=== PATIENT | male | born 1950 | race Caucasian/White ===

== ENCOUNTER 2016-10-27 17:58 | Emergency (ER) | payer MEDICAID, MEDICARE ==
[~2016-10-27] VITALS: Ht 170.2 cm; Wt 70.5 kg
[2016-10-27] MEDS ORDERED: SODIUM CHLORIDE 0.9% 1,000ML IVBOLUS ONE (19:30)
[2016-10-27] MEDS ORDERED: SODIUM CHLORIDE FLUSH 10ML SYR IVF ONE (19:30)
[2016-10-27 19:58] LABS: BLOOD UREA NITROGEN 27 mg/dL (7-18)
[2016-10-27 20:04] LABS: ASPARTATE AMINO TRANSFERASE 18 U/L (15-37)
[2016-10-27 22:53] VITALS: BP 156/85
== END 2016-10-27 23:01 | disposition home or self-care (01) ==
LOC: ED 22:09
DX: S70.02XA Contusion of left hip, initial encounter (principal); Z59.0 Homelessness; F17.200 Nicotine dependence, unspecified, uncomplicated; W19.XXXA Unspecified fall, initial encounter; Y93.89 Activity, other specified; Y99.8 Other external cause status; Y92.89 Other specified places as the place of occurrence of the external cause
CPT/HCPCS: 36415; 71010; 72190; 73552; 73700; 80053; 80307; 83880; 85025; 99285; J7030

== ENCOUNTER 2016-11-04 16:41 | Emergency (ER) | payer MEDICARE ==
[~2016-11-04] VITALS: Ht 167.6 cm; Wt 65.9 kg
[2016-11-04] MEDS ORDERED: SODIUM CHLORIDE 0.9% 1,000ML IVBOLUS ONE (17:00)
[2016-11-04] MEDS ORDERED: SODIUM CHLORIDE FLUSH 10ML SYR IVF ONE (17:00)
[2016-11-04 17:26] LABS: ASPARTATE AMINO TRANSFERASE 14 U/L (15-37); BLOOD UREA NITROGEN 26 mg/dL (7-18)
[2016-11-04 17:48] LABS: IS PT STATUS REG ER OR PRE ER? YES
[2016-11-04] MEDS ORDERED: FAMOTIDINE 20 MG TABLET PO ONE (18:00)
[2016-11-04 18:40] VITALS: BP 198/109
[2016-11-04] MEDS ORDERED: FAMOTIDINE 20 MG TABLET ONE (18:44)
== END 2016-11-04 19:34 | disposition home or self-care (01) ==
LOC: ED 17:54
DX: K29.20 Alcoholic gastritis without bleeding (principal); E86.0 Dehydration; Z59.0 Homelessness; I10 Essential (primary) hypertension; Z72.9 Problem related to lifestyle, unspecified
CPT/HCPCS: 36415; 80053; 81003; 83690; 84484; 85025; 85610; 85730; 96360; 99284; J7030

== ENCOUNTER 2016-11-08 03:54 | Emergency (ER) | payer MEDICARE ==
[~2016-11-08] VITALS: Ht 167.6 cm; Wt 70.0 kg
[2016-11-08 04:36] VITALS: BP 131/75
== END 2016-11-08 08:04 | disposition home or self-care (01) ==
LOC: ED 04:12
DX: F10.220 Alcohol dependence with intoxication, uncomplicated (principal); I10 Essential (primary) hypertension
CPT/HCPCS: 99283

== ENCOUNTER 2016-11-10 21:57 | Emergency (ER) | payer MEDICARE ==
[~2016-11-10] VITALS: Ht 167.6 cm; Wt 60.0 kg
[2016-11-11 02:08] VITALS: BP 131/76
== END 2016-11-11 02:10 | disposition home or self-care (01) ==
LOC: ED 23:59
DX: F10.220 Alcohol dependence with intoxication, uncomplicated (principal); Z72.89 Other problems related to lifestyle; I10 Essential (primary) hypertension
CPT/HCPCS: 99283